=== PATIENT | female | born 1970 | race Caucasian/White ===

== ENCOUNTER 2016-05-09 09:18 | Inpatient (IN) | payer OTHER ==
[~2016-05-09] VITALS: Ht 165.1 cm; Wt 75.6 kg
[~2016-05-09 09:18] MED LIST: ALPHA-LIPOIC A300 MG PO; AMPHETAMINE SALT5 MG PO; AMPYRA10 MG PO; ATORVASTATIN CA40 MG PO; B COMPLETE1 EACH PO; BIOTIN 5000MCG PO; CAYENNE450 MG PO; FIORICET,ESG1 TABLET PO; LIORESAL10 MG PO; Tumeric PO; vitamin c PO
[2016-05-09 11:32] LABS: EOSINOPHIL (%) 0.7 % (0-5); EOSINOPHIL COUNT 0.1 K/uL (0-0.3); HEMATOCRIT 38.3 % (36.0-46.0); IMMATURE GRANULOCYTE (%) 0.1 % (0.0-0.7); IMMATURE GRANULOCYTE COUNT 0.1 K/uL; LYMPHOCYTE COUNT 1.8 K/uL (1.0-2.8); MCH 30.7 PG (29.0-34.0); MCHC 34.2 G/DL (30.0-36.0); MCV 89.7 FL (83-99); MEAN PLAT.VOLUME 9.8 uM^3 (9.5-12.4); MONOCYTE (%) 9.2 % (3-12); MONOCYTE COUNT 0.7 K/uL (0-0.8); NEUTROPHIL (%) 66.3 % (45-76); NEUTROPHIL COUNT 4.9 K/uL (1.8-6.4); PLATELET COUNT 224 K/uL (156-360); RBC DIS.WIDTH-CV 11.7 % (11.8-14.6); RBC DIS.WIDTH-SD 37.4 % (39-53); RED BLOOD COUNT 4.27 M/uL (3.80-5.20); WHITE BLOOD COUNT 7.4 K/uL (4.1-10.2)
[2016-05-09 11:40] LABS: CHLORIDE 108 mEq/L (99-109); POTASSIUM 3.4 mEq/L (3.7-5.4); SODIUM 141 mEq/L (136-147)
[2016-05-09 11:41] LABS: GLUCOSE 113 mg/dL (70-99)
[2016-05-09 11:43] LABS: ANION GAP 11 MEQ/L (2-14)
[2016-05-09 11:45] LABS: GFR ESTIMATE (CALCULATED) > 59 mL/min/
[2016-05-09 11:46] LABS: UREA NITROGEN (BUN) 10 mg/dL (9-23)
[2016-05-09 16:12] VITALS: BP 105/64
[2016-05-09 21:33] VITALS: BP 108/57
[2016-05-10] VITALS: BP 105/63
[2016-05-10 04:42] VITALS: BP 105/58
[2016-05-10 06:42] LABS: HEMATOCRIT 38.3 % (36.0-46.0); MCH 30.6 PG (29.0-34.0); MCHC 33.4 G/DL (30.0-36.0); MCV 91.6 FL (83-99); MEAN PLAT.VOLUME 10.7 uM^3 (9.5-12.4); PLATELET COUNT 221 K/uL (156-360); RBC DIS.WIDTH-CV 12.1 % (11.8-14.6); RBC DIS.WIDTH-SD 40.5 % (39-53); RED BLOOD COUNT 4.18 M/uL (3.80-5.20)
[2016-05-10 06:43] LABS: WHITE BLOOD COUNT 5.1 K/uL (4.1-10.2)
[2016-05-10 06:53] LABS: ALKALINE PHOSPHATASE 47 IU/L (3-129); ANION GAP 7 MEQ/L (2-14); C-REACTIVE PROTEIN 2.3 MG/L (0-10); CHLORIDE 107 MEQ/L (99-109); ERTH.SED.RATE 6 MM/HR (0-20); GFR ESTIMATE (CALCULATED) > 59 mL/min/; GLUCOSE 77 mg/dL (70-99); SAMPLE HEMOLYSIS CHECK 0; SAMPLE ICTERIC CHECK 0; SAMPLE LIPEMIA CHECK 0; SODIUM 140 MEQ/L (136-147); TOTAL BILIRUBIN 0.4 MG/DL (0.0-1.0); UREA NITROGEN (BUN) 11 mg/dL (9-23)
[2016-05-10 07:50] VITALS: BP 89/51
[2016-05-10 07:54] VITALS: BP 98/66
[2016-05-10 09:53] LABS: ADD MIUA? YES; BILIRUBIN NEGATIVE; BLOOD NEGATIVE; COLOR YELLOW ((YELLOW)); GLUCOSE (STRIP) NEGATIVE; KETONES NEGATIVE; LEUKOCYTES MODERATE; NITRITE NEGATIVE; PROTEIN (STRIP) NEGATIVE; SPECIFIC GRAVITY 1.022 (1.000-1.030); UROBILINOGEN 0.2 MG/DL (0.2-1.0)
[2016-05-10 10:42] LABS: EPITHELIAL CELLS 2+; MUCUS 1+
[2016-05-10 10:43] LABS: BACTERIA RARE; CASTS NONE SEEN /LPF; CRYSTALS NONE SEEN; RED BLOOD CELLS 0-5 /HPF (0-5); UCUL ADDED? NO
[2016-05-10 12:19] VITALS: BP 102/72
[2016-05-10 20:24] VITALS: BP 105/64
[2016-05-11 01:33] VITALS: BP 119/68
[2016-05-11 05:17] VITALS: BP 98/56
[2016-05-11 08:22] LABS: EOSINOPHIL (%) 0 % (0-5); HEMATOCRIT 40.6 % (36.0-46.0); IMMATURE GRANULOCYTE (%) 0.4 % (0.0-0.7); LYMPHOCYTE COUNT 0.6 K/uL (1.0-2.8); MCH 30.6 PG (29.0-34.0); MCHC 34.5 G/DL (30.0-36.0); MCV 88.6 FL (83-99); MEAN PLAT.VOLUME 10.6 uM^3 (9.5-12.4); MONOCYTE (%) 0.2 % (3-12); NEUTROPHIL (%) 87.9 % (45-76); NEUTROPHIL COUNT 4.7 K/uL (1.8-6.4); PLATELET COUNT 258 K/uL (156-360); RBC DIS.WIDTH-CV 11.6 % (11.8-14.6); RBC DIS.WIDTH-SD 37.3 % (39-53); RED BLOOD COUNT 4.58 M/uL (3.80-5.20); WHITE BLOOD COUNT 5.4 K/uL (4.1-10.2)
[2016-05-11 08:45] LABS: ALKALINE PHOSPHATASE 57 IU/L (3-129); ANION GAP 9 MEQ/L (2-14); CHLORIDE 106 MEQ/L (99-109); GFR ESTIMATE (CALCULATED) > 59 mL/min/; POTASSIUM 4.2 MEQ/L (3.7-5.4); SAMPLE HEMOLYSIS CHECK 0; SAMPLE ICTERIC CHECK 0; SAMPLE LIPEMIA CHECK 0; SODIUM 138 MEQ/L (136-147); UREA NITROGEN (BUN) 10 mg/dL (9-23)
[2016-05-11 08:49] LABS: GLUCOSE 143 mg/dL (70-99); TOTAL BILIRUBIN 0.6 MG/DL (0.0-1.0)
[2016-05-11 09:13] VITALS: BP 122/82
[2016-05-11 11:49] VITALS: BP 111/64
[2016-05-11 16:18] VITALS: BP 112/59
[2016-05-11 20:29] VITALS: BP 107/67
[2016-05-12 00:13] VITALS: BP 112/67
[2016-05-12 07:22] LABS: EOSINOPHIL (%) 0 % (0-5); HEMATOCRIT 38.6 % (36.0-46.0); IMMATURE GRANULOCYTE (%) 0.3 % (0.0-0.7); LYMPHOCYTE COUNT 0.8 K/uL (1.0-2.8); MCHC 34.7 G/DL (30.0-36.0); MCV 89.4 FL (83-99); MEAN PLAT.VOLUME 11.4 uM^3 (9.5-12.4); MONOCYTE (%) 5.4 % (3-12); MONOCYTE COUNT 0.7 K/uL (0-0.8); NEUTROPHIL (%) 87.7 % (45-76); NEUTROPHIL COUNT 11.3 K/uL (1.8-6.4); PLATELET COUNT 213 K/uL (156-360); RBC DIS.WIDTH-CV 11.7 % (11.8-14.6); RBC DIS.WIDTH-SD 37.8 % (39-53); RED BLOOD COUNT 4.32 M/uL (3.80-5.20)
[2016-05-12 07:27] LABS: WHITE BLOOD COUNT 12.9 K/uL (4.1-10.2)
[2016-05-12 07:49] VITALS: BP 99/51
[2016-05-12 09:01] LABS: ANION GAP 9 MEQ/L (2-14); CHLORIDE 111 MEQ/L (99-109); GFR ESTIMATE (CALCULATED) > 59 mL/min/; SAMPLE HEMOLYSIS CHECK 0; SAMPLE ICTERIC CHECK 0; SAMPLE LIPEMIA CHECK 0; SODIUM 143 MEQ/L (136-147); UREA NITROGEN (BUN) 12 mg/dL (9-23)
[2016-05-12 09:05] LABS: GLUCOSE 103 mg/dL (70-99)
[2016-05-12] MEDS ORDERED: LIDOCAINE700 MG TD (13:30)
[2016-05-12] MEDS ORDERED: BACLOFEN10 MG PO (13:30)
[2016-05-12 15:26] VITALS: BP 109/58
[2016-05-12] MEDS ORDERED: PREDNISONE10 MG PO (17:33)
== END 2016-05-12 22:33 | disposition home or self-care (01) | DRG 52 ==
LOC: EME 09:18 → EDOF 12:42 → 5WEST 12:42 → EDOF 12:42 → 5WEST 14:06 → 5SOUTH 05-10 08:38 → 5WEST 05-10 08:38 → 5SOUTH 05-11 20:21
PROVIDERS: Emergency Medicine; Hospitalist; Internal Medicine; Physician Assistant
DX: G82.50 Quadriplegia, unspecified (principal); G37.3 Acute transverse myelitis in demyelinating disease of central nervous system; J98.11 Atelectasis; D53.1 Other megaloblastic anemias, not elsewhere classified; I95.9 Hypotension, unspecified; E87.6 Hypokalemia; G95.89 Other specified diseases of spinal cord; R26.9 Unspecified abnormalities of gait and mobility; E04.1 Nontoxic single thyroid nodule
CPT/HCPCS: 72156; 80048; 80053; 81003; 83735; 85025; 85027; 85651; 86140; 97530 GP; 99281; 99285; G0378; G8978 GP CK; G8979 CJ; J2930; J7030

== ENCOUNTER 2016-11-30 22:50 | Observation (INO) | payer OTHER ==
[~2016-11-30] VITALS: Ht 165.1 cm; Wt 81.4 kg
[~2016-11-30 22:50] MED LIST changes: +BACLOFEN10 MG PO; +LIDOCAINE700 MG TD; +PREDNISONE10 MG PO
[2016-11-30 23:49] LABS: HEMATOCRIT 39.1 % (36.0-46.0); MCH 30.3 PG (29.0-34.0); MCHC 33.8 G/DL (30.0-36.0); MCV 89.7 FL (83-99); MEAN PLAT.VOLUME 9.4 uM^3 (9.5-12.4); PLATELET COUNT 244 K/uL (156-360); RBC DIS.WIDTH-CV 11.6 % (11.8-14.6); RBC DIS.WIDTH-SD 37.5 % (39-53); RED BLOOD COUNT 4.36 M/uL (3.80-5.20); WHITE BLOOD COUNT 7.2 K/uL (4.1-10.2)
[2016-12-01 00:02] LABS: CHLORIDE 105 mEq/L (99-109); SODIUM 138 mEq/L (136-147)
[2016-12-01 00:04] LABS: GLUCOSE 87 mg/dL (70-99)
[2016-12-01 00:05] LABS: ANION GAP 9 MEQ/L (2-14)
[2016-12-01 00:06] LABS: TOTAL BILIRUBIN 0.4 mg/dL (0.0-1.0)
[2016-12-01 00:07] LABS: ALKALINE PHOSPHATASE 61 IU/L (3-129)
[2016-12-01 00:08] LABS: GFR ESTIMATE (CALCULATED) > 59 mL/min/
[2016-12-01 00:09] LABS: UREA NITROGEN (BUN) 8 mg/dL (9-23)
[2016-12-01 00:11] LABS: CREATINE KINASE 42 IU/L (1-294); LIPASE 67 U/L (1.0-51.0); TOTAL CK 42 IU/L (1-294)
[2016-12-01 00:13] LABS: TROP-I INTERPRETATION NEGATIVE; TROPONIN-I < 0.01 ng/mL (0.0-0.30)
[2016-12-01 00:55] LABS: ERTH.SED.RATE 14 MM/HR (0-20)
[2016-12-01 00:57] LABS: CK-MB 0.6 ng/mL (0.0-4.9)
[2016-12-01 02:03] LABS: ADD MIUA? YES; BILIRUBIN NEGATIVE; BLOOD NEGATIVE; COLOR YELLOW ((YELLOW)); GLUCOSE (STRIP) NEGATIVE; KETONES NEGATIVE; LEUKOCYTES MODERATE; NITRITE NEGATIVE; PROTEIN (STRIP) NEGATIVE; SPECIFIC GRAVITY 1.039 (1.000-1.030); UROBILINOGEN 0.2 MG/DL (0.2-1.0)
[2016-12-01 02:06] LABS: BACTERIA NONE SEEN /HPF; EPITHELIAL CELLS RARE /HPF; MUCUS 1+ /LPF; RED BLOOD CELLS 0-5 /HPF (0-5); UCUL ADDED? YES; WHITE BLOOD CELLS 20-30 /HPF (0-5)
[2016-12-01 03:10] LABS: C-REACTIVE PROTEIN < 1.0 MG/L (0-10)
[2016-12-01 04:53] VITALS: BP 110/56
[2016-12-01 05:20] LABS: HEMATOCRIT 34.9 % (36.0-46.0); MCH 30.7 PG (29.0-34.0); MCHC 34.1 G/DL (30.0-36.0); MCV 90.2 FL (83-99); MEAN PLAT.VOLUME 9.7 uM^3 (9.5-12.4); PLATELET COUNT 205 K/uL (156-360); RBC DIS.WIDTH-CV 11.7 % (11.8-14.6); RBC DIS.WIDTH-SD 38.2 % (39-53); RED BLOOD COUNT 3.87 M/uL (3.80-5.20); WHITE BLOOD COUNT 6.4 K/uL (4.1-10.2)
[2016-12-01 06:03] LABS: ALKALINE PHOSPHATASE 44 IU/L (3-129); ANION GAP 6 MEQ/L (2-14); CHLORIDE 109 MEQ/L (99-109); GFR ESTIMATE (CALCULATED) > 59 mL/min/; GLUCOSE 86 mg/dL (70-99); POTASSIUM 3.8 MEQ/L (3.7-5.4); SAMPLE HEMOLYSIS CHECK 0; SAMPLE ICTERIC CHECK 0; SAMPLE LIPEMIA CHECK 0; SODIUM 140 MEQ/L (136-147); TOTAL BILIRUBIN 0.5 MG/DL (0.0-1.0); UREA NITROGEN (BUN) 6 mg/dL (9-23)
[2016-12-01 09:08] VITALS: BP 105/53
[2016-12-01 12:27] VITALS: BP 110/68
[2016-12-01 12:33] VITALS: BP 115/71
[2016-12-01 16:13] VITALS: BP 105/71
[2016-12-01 20:00] VITALS: BP 101/59
[2016-12-02] VITALS: BP 116/70
[2016-12-02 04:07] VITALS: BP 93/54
[2016-12-02 07:56] VITALS: BP 97/54
[2016-12-02 12:33] VITALS: BP 117/62
[2016-12-02] MEDS ORDERED: NITROFURANTOIN100 M3 PO (13:45)
[2016-12-02] MEDS ORDERED: DOCUSATE SODIU100 MG PO (13:46)
[2016-12-02] MEDS ORDERED: POLYETHYLENE GL17 GM PO (13:46)
[2016-12-02] MEDS ORDERED: DITROPAN5 MG PO (13:50)
[2016-12-02 16:16] VITALS: BP 103/65
[2016-12-02 19:00] VITALS: BP 110/68
== END 2016-12-02 22:26 | disposition home or self-care (01) ==
LOC: EME → EDBD 22:50 → EME 22:50 → EDOF 12-01 03:25 → 5WEST 12-01 03:25 → ENRESERV 12-01 03:27 → 5WEST 12-01 04:32 → ENPENDDIS 12-02 → 5WEST 12-02 22:26
PROVIDERS: Emergency Medicine; Internal Medicine
DX: G95.89 Other specified diseases of spinal cord (principal); N39.0 Urinary tract infection, site not specified; K59.00 Constipation, unspecified; M62.81 Muscle weakness (generalized); N39.498 Other specified urinary incontinence
CPT/HCPCS: 70450; 71010; 74177; 80053; 81003; 82550; 82553; 83690; 84484; 85027; 85651; 86140; 87086; 93005; 97530 GP; 99281; 99285; G0378; G8987 GO CM; G8988 GO CK; J1644; J1885; J2270; J2405; J7030

== ENCOUNTER 2017-05-01 22:59 | Inpatient (IN) | payer OTHER ==
[~2017-05-01] VITALS: Ht 165.1 cm; Wt 79.5 kg
[~2017-05-01 22:59] MED LIST changes: +DITROPAN5 MG PO; +DOCUSATE SODIU100 MG PO; +NITROFURANTOIN100 M3 PO; +POLYETHYLENE GL17 GM PO
[2017-05-02 01:11] LABS: HEMATOCRIT 41.4 % (36.0-46.0); HEMOGLOBIN 14.2 G/DL (11.9-15.5); MCH 30.7 PG (29.0-34.0); MCHC 34.3 G/DL (30.0-36.0); MCV 89.4 FL (83-99); PLATELET COUNT 239 K/uL (156-360); RBC DIS.WIDTH-CV 11.5 % (11.8-14.6); RBC DIS.WIDTH-SD 36.7 % (39-53); RED BLOOD COUNT 4.63 M/uL (3.80-5.20); WHITE BLOOD COUNT 6.5 K/uL (4.1-10.2)
[2017-05-02 01:24] LABS: ALBUMIN 4.3 g/dL (3.2-4.8); CHLORIDE 108 mEq/L (99-109); POTASSIUM 4.3 mEq/L (3.7-5.4); SODIUM 139 mEq/L (136-147)
[2017-05-02 01:27] LABS: GLUCOSE 86 mg/dL (70-99); TOTAL PROTEIN 7.7 g/dL (6.4-8.3)
[2017-05-02 01:28] LABS: TOTAL BILIRUBIN 0.4 mg/dL (0.0-1.0)
[2017-05-02 01:30] LABS: ALKALINE PHOSPHATASE 58 IU/L (3-129); CREATININE 0.8 mg/dL (0.6-1.3); GFR ESTIMATE (CALCULATED) > 59 mL/min/
[2017-05-02 01:31] LABS: UREA NITROGEN (BUN) 7 mg/dL (9-23)
[2017-05-02 01:32] LABS: AST (GOT) 23 IU/L (2-34); TROP-I INTERPRETATION NEGATIVE; TROPONIN-I < 0.01 ng/mL (0.0-0.30)
[2017-05-02 01:33] LABS: ALT (GPT) 24 IU/L (3-49)
[2017-05-02 04:29] LABS: APPEARANCE CLEAR ((CLEAR)); BILIRUBIN NEGATIVE; BLOOD NEGATIVE; COLOR YELLOW ((YELLOW)); GLUCOSE (STRIP) NEGATIVE; KETONES NEGATIVE; LEUKOCYTES MODERATE; NITRITE NEGATIVE; PROTEIN (STRIP) NEGATIVE; UROBILINOGEN 0.2 MG/DL (0.2-1.0)
[2017-05-02 04:37] LABS: BACTERIA NONE SEEN /HPF; EPITHELIAL CELLS RARE /HPF; MUCUS TRACE /LPF; RED BLOOD CELLS 0-5 /HPF (0-5); UCUL ADDED? YES
[2017-05-02 05:14] LABS: SPECIFIC GRAVITY 1.061 (1.000-1.030)
[2017-05-02 07:40] LABS: D-DIMER ELISA < 150.00 ng/mLDDU (<230)
[2017-05-02 08:12] LABS: HDL CHOLESTEROL 73 MG/DL (Desirable>=50); LDL CHOLESTEROL 131 mg/dL (Desirable<100); NON-HDL CHOLESTEROL 142 mg/dL (Desirable<160); TOTAL CHOLESTEROL 215 mg/dL (Desirable<200); TRIGLYCERIDES 55 MG/DL (Normal: <150)
[2017-05-02 09:48] LABS: HEMOGLOBIN A1c (GLYCOHEMOGLOB) 4.7 % (Below 5.7)
[2017-05-02] MEDS ORDERED: AMPYRA10 MG PO (12:13)
[2017-05-02] MEDS ORDERED: ASCORBIC ACID250 MG PO (12:13)
[2017-05-02] MEDS ORDERED: BIOTIN1 MG PO (12:14)
[2017-05-02] MEDS ORDERED: VITAMIN D31000 UNI2 PO (12:14)
[2017-05-02 12:34] LABS: TROP-I INTERPRETATION NEGATIVE; TROPONIN-I < 0.01 ng/mL (0.0-0.30)
[2017-05-02 19:45] VITALS: BP 122/68
[2017-05-02 23:57] VITALS: BP 119/63
[2017-05-03 03:27] VITALS: BP 103/59
[2017-05-03 06:15] LABS: BASOPHIL (%) 0.1 % (0-1); EOSINOPHIL (%) 0 % (0-5); HEMATOCRIT 39.7 % (36.0-46.0); HEMOGLOBIN 13.8 G/DL (11.9-15.5); IMMATURE GRANULOCYTE (%) 0.5 % (0.0-0.7); LYMPHOCYTE (%) 7.5 % (15-42); LYMPHOCYTE COUNT 0.7 K/uL (1.0-2.8); MCH 30.9 PG (29.0-34.0); MCHC 34.8 G/DL (30.0-36.0); MCV 88.8 FL (83-99); MONOCYTE (%) 1.4 % (3-12); MONOCYTE COUNT 0.1 K/uL (0-0.8); NEUTROPHIL (%) 90.5 % (45-76); NEUTROPHIL COUNT 7.8 K/uL (1.8-6.4); PLATELET COUNT 239 K/uL (156-360); RBC DIS.WIDTH-CV 11.3 % (11.8-14.6); RBC DIS.WIDTH-SD 36.3 % (39-53); RED BLOOD COUNT 4.47 M/uL (3.80-5.20); WHITE BLOOD COUNT 8.6 K/uL (4.1-10.2)
[2017-05-03 06:51] LABS: CHLORIDE 109 MEQ/L (99-109); CREATININE 0.7 MG/DL (0.6-1.3); GFR ESTIMATE (CALCULATED) > 59 mL/min/; POTASSIUM 4.1 MEQ/L (3.7-5.4); SODIUM 140 MEQ/L (136-147); UREA NITROGEN (BUN) 10 mg/dL (9-23)
[2017-05-03 06:57] LABS: GLUCOSE 146 mg/dL (70-99)
[2017-05-03 06:58] LABS: TROP-I INTERPRETATION NEGATIVE; TROPONIN-I < 0.01 ng/mL (0.0-0.30)
[2017-05-03 08:25] VITALS: BP 119/56
[2017-05-03 11:37] LABS: ANTI-HEPATITIS B CORE (TOTAL) Nonreactive
[2017-05-03 11:38] LABS: HEPATITIS B SURFACE ANTIGEN Nonreactive
[2017-05-03 11:39] LABS: ANTI-HEPATITIS B CORE (IGM) Nonreactive; HEPATITIS B SURFACE ANTIBODY Nonreactive
[2017-05-03 11:58] VITALS: BP 112/58
[2017-05-03 17:07] VITALS: BP 93/51
[2017-05-03 17:24] VITALS: BP 110/60
[2017-05-03 23:57] VITALS: BP 98/53
[2017-05-04 06:04] LABS: BASOPHIL (%) 0.1 % (0-1); EOSINOPHIL (%) 0 % (0-5); HEMATOCRIT 37.5 % (36.0-46.0); HEMOGLOBIN 12.8 G/DL (11.9-15.5); IMMATURE GRANULOCYTE (%) 0.6 % (0.0-0.7); LYMPHOCYTE (%) 6.3 % (15-42); LYMPHOCYTE COUNT 0.6 K/uL (1.0-2.8); MCH 30.8 PG (29.0-34.0); MCHC 34.1 G/DL (30.0-36.0); MCV 90.1 FL (83-99); MONOCYTE (%) 0.8 % (3-12); MONOCYTE COUNT 0.1 K/uL (0-0.8); NEUTROPHIL (%) 92.2 % (45-76); NEUTROPHIL COUNT 9.4 K/uL (1.8-6.4); PLATELET COUNT 210 K/uL (156-360); RBC DIS.WIDTH-CV 11.5 % (11.8-14.6); RBC DIS.WIDTH-SD 37.7 % (39-53); RED BLOOD COUNT 4.16 M/uL (3.80-5.20); WHITE BLOOD COUNT 10.2 K/uL (4.1-10.2)
[2017-05-04 06:23] LABS: CHLORIDE 108 MEQ/L (99-109); CREATININE 0.8 MG/DL (0.6-1.3); GFR ESTIMATE (CALCULATED) > 59 mL/min/; GLUCOSE 128 mg/dL (70-99); POTASSIUM 4.4 MEQ/L (3.7-5.4); SODIUM 138 MEQ/L (136-147); UREA NITROGEN (BUN) 14 mg/dL (9-23)
[2017-05-04 07:41] VITALS: BP 99/51
[2017-05-04 16:10] VITALS: BP 95/53
[2017-05-04 23:31] VITALS: BP 110/55
[2017-05-05 07:57] VITALS: BP 103/58
[2017-05-05] MEDS ORDERED: ASPIR-LOW81 MG PO (10:49)
[2017-05-05] MEDS ORDERED: ATORVASTATIN CA40 MG PO (10:49)
[2017-05-05] MEDS ORDERED: PREDNISONE10 MG PO (10:51)
[2017-05-05] MEDS ORDERED: PREDNISONE20 MG PO (10:51)
[2017-05-05] MEDS ORDERED: SALONPAS GEL-P1 EAC1 TD (10:56)
[2017-05-05 14:20] VITALS: BP 117/62
[2017-05-06 07:30] VITALS: BP 105/59
[2017-05-07 00:28] VITALS: BP 106/58
[2017-05-07 07:35] VITALS: BP 104/64
[2017-05-07] MEDS ORDERED: TYLENOL REGULA325 MG PO (11:03)
[2017-05-07 16:43] VITALS: BP 107/61
[2017-05-07 23:30] VITALS: BP 105/69
[2017-05-08 07:32] VITALS: BP 109/70
[2017-05-08] MEDS ORDERED: PREDNISONE10 MG PO (15:36)
[2017-05-08] MEDS ORDERED: NATURE'S TEARS15 M1 BOTH EYES (15:38)
== END 2017-05-08 12:52 | DRG 60 ==
LOC: EME 22:59 → EDOF 05-02 05:59 → 5EAST 05-02 05:59 → ENRESERV 05-02 06:00 → 5EAST 05-02 16:47
PROVIDERS: Hospitalist; Internal Medicine; Nurse Practitioner Family; Specialist; Student in an Organized Health Care Education/Training Program
DX: G35 Multiple sclerosis (principal); G95.89 Other specified diseases of spinal cord; R11.0 Nausea; E78.5 Hyperlipidemia, unspecified; M53.3 Sacrococcygeal disorders, not elsewhere classified; Z87.891 Personal history of nicotine dependence
CPT/HCPCS: 70450; 70553; 72126; 72156; 80048; 80053; 80061; 81003; 83036; 84484; 85025; 85027; 85379; 85610; 85730; 86704; 86705; 86706; 87086; 87340; 93005; 97530 GP; 99281; 99285; J2270; J2930; J7030; J7050; J7512

== ENCOUNTER 2017-05-08 10:34 | Inpatient (IN) | payer OTHER ==
[~2017-05-08] VITALS: Ht 165.1 cm; Wt 78.6 kg
[~2017-05-08 10:34] MED LIST changes: +ASCORBIC ACID250 MG PO; +ASPIR-LOW81 MG PO; +BIOTIN1 MG PO; +PREDNISONE20 MG PO; +SALONPAS GEL-P1 EAC1 TD; +TYLENOL REGULA325 MG PO; +VITAMIN D31000 UNI2 PO
[2017-05-08 13:00] VITALS: BP 112/69
[2017-05-08 15:00] VITALS: BP 117/62
[2017-05-08] MEDS ORDERED: PREDNISONE10 MG PO (15:36)
[2017-05-08] MEDS ORDERED: NATURE'S TEARS15 M1 BOTH EYES (15:38)
[2017-05-09] VITALS: BP 120/70
[2017-05-09 05:38] VITALS: BP 100/55
[2017-05-09 06:01] LABS: HEMATOCRIT 40.2 % (36.0-46.0); HEMOGLOBIN 13.8 G/DL (11.9-15.5); MCHC 34.3 G/DL (30.0-36.0); MCV 90.3 FL (83-99); PLATELET COUNT 236 K/uL (156-360); RBC DIS.WIDTH-CV 11.7 % (11.8-14.6); RBC DIS.WIDTH-SD 38.4 % (39-53); RED BLOOD COUNT 4.45 M/uL (3.80-5.20); WHITE BLOOD COUNT 11.8 K/uL (4.1-10.2)
[2017-05-09 06:28] LABS: ALBUMIN 3.6 G/DL (3.2-4.8); ALKALINE PHOSPHATASE 57 IU/L (3-129); ALT (GPT) 54 IU/L (3-49); AST (GOT) 14 IU/L (2-34); CHLORIDE 106 MEQ/L (99-109); CREATININE 0.8 MG/DL (0.6-1.3); GFR ESTIMATE (CALCULATED) > 59 mL/min/; GLUCOSE 84 mg/dL (70-99); POTASSIUM 3.8 MEQ/L (3.7-5.4); SODIUM 138 MEQ/L (136-147); TOTAL BILIRUBIN 0.5 MG/DL (0.0-1.0); TOTAL PROTEIN 6.1 G/DL (6.4-8.3); UREA NITROGEN (BUN) 13 mg/dL (9-23)
[2017-05-09 15:54] VITALS: BP 127/72
[2017-05-10 05:58] VITALS: BP 102/53
[2017-05-10 15:40] VITALS: BP 126/60
[2017-05-11 05:08] VITALS: BP 95/52
[2017-05-11 06:11] VITALS: BP 102/60
[2017-05-11 15:00] VITALS: BP 118/63
[2017-05-12 04:24] VITALS: BP 104/53
[2017-05-12 15:16] VITALS: BP 103/70
[2017-05-13 05:39] VITALS: BP 119/60
[2017-05-13 16:27] VITALS: BP 97/52
[2017-05-13 16:30] VITALS: BP 104/58
[2017-05-13 21:32] VITALS: BP 109/58
[2017-05-14 05:32] VITALS: BP 108/59
[2017-05-14 15:14] VITALS: BP 123/63
[2017-05-15 06:03] VITALS: BP 98/54
[2017-05-15 07:16] LABS: BASOPHIL (%) 0.5 % (0-1); EOSINOPHIL (%) 1.6 % (0-5); EOSINOPHIL COUNT 0.1 K/uL (0-0.3); HEMATOCRIT 39.7 % (36.0-46.0); HEMOGLOBIN 12.9 G/DL (11.9-15.5); IMMATURE GRANULOCYTE (%) 1.8 % (0.0-0.7); LYMPHOCYTE COUNT 1.9 K/uL (1.0-2.8); MCH 29.9 PG (29.0-34.0); MCHC 32.5 G/DL (30.0-36.0); MCV 92.1 FL (83-99); MONOCYTE COUNT 0.5 K/uL (0-0.8); NEUTROPHIL (%) 57.1 % (45-76); NEUTROPHIL COUNT 3.5 K/uL (1.8-6.4); PLATELET COUNT 229 K/uL (156-360); RBC DIS.WIDTH-CV 11.8 % (11.8-14.6); RBC DIS.WIDTH-SD 40.1 % (39-53); RED BLOOD COUNT 4.31 M/uL (3.80-5.20); WHITE BLOOD COUNT 6.1 K/uL (4.1-10.2)
[2017-05-15 07:30] LABS: ALBUMIN 3.5 G/DL (3.2-4.8); CHLORIDE 108 MEQ/L (99-109); SODIUM 139 MEQ/L (136-147); TOTAL BILIRUBIN 0.5 MG/DL (0.0-1.0)
[2017-05-15 07:36] LABS: ALKALINE PHOSPHATASE 52 IU/L (3-129); ALT (GPT) 19 IU/L (3-49); AST (GOT) 12 IU/L (2-34); CREATININE 0.6 MG/DL (0.6-1.3); GFR ESTIMATE (CALCULATED) > 59 mL/min/; GLUCOSE 83 mg/dL (70-99); TOTAL PROTEIN 5.7 G/DL (6.4-8.3); UREA NITROGEN (BUN) 9 mg/dL (9-23)
[2017-05-15 15:42] VITALS: BP 111/59
[2017-05-16 06:32] VITALS: BP 114/53
[2017-05-16 15:00] VITALS: BP 104/57
[2017-05-17 06:26] VITALS: BP 109/56
[2017-05-17 15:01] VITALS: BP 113/62
[2017-05-18 06:33] VITALS: BP 98/55
[2017-05-18 13:39] LABS: TREPONEMA ANTIBODY NEGATIVE (NEGATIVE)
[2017-05-18 15:21] VITALS: BP 108/61
[2017-05-18 21:35] VITALS: BP 101/58
[2017-05-19 06:25] VITALS: BP 89/56
[2017-05-19 15:28] VITALS: BP 123/60
[2017-05-20 06:19] VITALS: BP 101/52
[2017-05-20 16:00] VITALS: BP 133/76
[2017-05-21 06:59] VITALS: BP 112/62
[2017-05-21 17:10] VITALS: BP 130/59
[2017-05-21 21:17] VITALS: BP 111/60
[2017-05-22 07:07] VITALS: BP 108/62
[2017-05-22 15:34] VITALS: BP 113/57
[2017-05-23 06:54] VITALS: BP 93/50
[2017-05-23 13:22] VITALS: BP 108/54
[2017-05-23 15:16] VITALS: BP 112/62
[2017-05-24 06:00] VITALS: BP 96/55
[2017-05-24 14:57] VITALS: BP 119/71
[2017-05-24 20:15] LABS: APPEARANCE SL.HAZY ((CLEAR)); BILIRUBIN NEGATIVE; BLOOD NEGATIVE; COLOR YELLOW ((YELLOW)); GLUCOSE (STRIP) NEGATIVE; KETONES NEGATIVE; LEUKOCYTES SMALL; NITRITE NEGATIVE; PROTEIN (STRIP) NEGATIVE; SPECIFIC GRAVITY 1.009 (1.000-1.030); UROBILINOGEN 0.2 MG/DL (0.2-1.0)
[2017-05-24 20:46] LABS: BACTERIA RARE /HPF; EPITHELIAL CELLS 1+ /HPF; MUCUS TRACE /LPF; RED BLOOD CELLS 0-5 /HPF (0-5); WHITE BLOOD CELLS 20-30 /HPF (0-5)
[2017-05-25 06:16] VITALS: BP 106/60
[2017-05-25 07:00] LABS: HEMATOCRIT 38.1 % (36.0-46.0); HEMOGLOBIN 12.8 G/DL (11.9-15.5); MCH 30.8 PG (29.0-34.0); MCHC 33.6 G/DL (30.0-36.0); MCV 91.6 FL (83-99); PLATELET COUNT 200 K/uL (156-360); RBC DIS.WIDTH-SD 40.6 % (39-53); RED BLOOD COUNT 4.16 M/uL (3.80-5.20); WHITE BLOOD COUNT 4.9 K/uL (4.1-10.2)
[2017-05-25 07:27] LABS: ALBUMIN 3.6 G/DL (3.2-4.8); ALKALINE PHOSPHATASE 52 IU/L (3-129); ALT (GPT) 59 IU/L (3-49); AST (GOT) 26 IU/L (2-34); CHLORIDE 107 MEQ/L (99-109); CREATININE 0.7 MG/DL (0.6-1.3); GFR ESTIMATE (CALCULATED) > 59 mL/min/; GLUCOSE 88 mg/dL (70-99); SODIUM 138 MEQ/L (136-147); TOTAL BILIRUBIN 0.4 MG/DL (0.0-1.0); TOTAL PROTEIN 5.8 G/DL (6.4-8.3); UREA NITROGEN (BUN) 10 mg/dL (9-23)
[2017-05-25 15:41] VITALS: BP 103/59
[2017-05-25] MEDS ORDERED: LOVENOX40 MG/0.4 SC (21:34)
[2017-05-25] MEDS ORDERED: SENNA PLUS TAB1 EACH PO (21:34)
[2017-05-26 06:44] VITALS: BP 90/58
[2017-05-26 15:09] VITALS: BP 106/59
== END 2017-05-26 16:58 | DRG 945 ==
LOC: 3WEST 10:34 → ENPENDDIS 05-26 → 3WEST 05-26 16:58
PROVIDERS: Physical Medicine & Rehabilitation Pain Medicine; Psychiatry & Neurology Neurology
PROC: F07M0ZZ Range of Motion and Joint Mobility Treatment of Musculoskeletal System - Whole Body (ICD-10-PCS; principal; 2017-05-08)
DX: R53.1 Weakness (principal); R26.2 Difficulty in walking, not elsewhere classified; G35 Multiple sclerosis; G95.89 Other specified diseases of spinal cord; B37.3 Candidiasis of vulva and vagina; T38.0X5A Adverse effect of glucocorticoids and synthetic analogues, initial encounter; K59.00 Constipation, unspecified; E78.5 Hyperlipidemia, unspecified; M21.372 Foot drop, left foot; L29.9 Pruritus, unspecified; R30.0 Dysuria; M54.5 Low back pain; Z60.2 Problems related to living alone
CPT/HCPCS: 71045; 74018; 80053; 81003; 83516 90; 84443; 85025; 85027; 86038; 86376; 86780; 87086; 97110 GO; 97530 GP; A6214; J1650; J7512